=== PATIENT | female | born 1990 | race Caucasian/White ===

== ENCOUNTER 2016-05-19 01:17 | Emergency (ER) | payer OTHER ==
[~2016-05-19] VITALS: Ht 162.6 cm; Wt 93.5 kg
[~2016-05-19 01:17] MED LIST: NITR-58 PO; PHEN95TA29 PO; PREN1TAB79 PO
[2016-05-19 01:25] VITALS: Ht 162.6 cm; Wt 93.5 kg
--- NOTE | 2016-05-19 05:43 | ERD ---
ER Documentation Chief Complaint Date/Time DATE: 05/19/16 TIME: 05:43 Chief Complaint back pain, headache, fever HPI 25 year old female who presents with CC of fever and bilateral headache x 3 days. Associated symptoms include nasal congestion, ST, cough, and bodyaches/ back pain. She has been taking Tylenol and OTC cold medications which she states offers temporary relief. She denies AP, nausea, vomiting, neck stiffness , ear pain, urinary incontinence, loss of bowel control, and chills. She denies have a flu shot this year. She denies recent travel. ROS All systems reviewed and are negative except as per history of present illness. Medications Home Meds Active Scripts Ibuprofen* (Motrin*) 600 Mg Tab, 600 MG PO Q6, #30 TAB Prov:Mary Reyna PA-C 05/19/16 Sodium Chloride (Saline Nasal Mist) 126 Ml Mist, 1 SPRAY NASAL QID for 7 Days, # 1 BOTTLE Prov:Mary Reyna PA-C 05/19/16 Pseudoephedrine Hcl (Sudafe 12-Hour) 120 Mg Tablet.er, 120 MG PO BID Y for CONGESTION for 5 Days, #10 TAB.SA Prov:Mary Reyna PA-C 05/19/16 Phenazopyridine Hcl* (AZO*) 95 Mg Tablet, 95 MG PO TID, #20 TAB Prov:TIANNA SHAH PA-C 12/29/15 Nitrofurantoin Monohyd Macrocr* (Macrobid*) 100 Mg Capsr, 100 MG PO BID for 7 Days, CAP Prov:TIANNA SHAH PA-C 12/29/15 Reported Medications Vit W-Ca,Fe,FA(<1 mg) ( Vitamins) 1 Each Tablet, 1 EACH PO, TAB 10/15/15 Allergies Allergies: Coded Allergies: No Known Allergy (Verified , 11/20/15) PMhx/Soc History of Surgery: No Anesthesia Reaction: No Hx Neurological Disorder: No Hx Respiratory Disorders: No Hx Cardiac Disorders: No Hx Psychiatric Problems: No Hx Miscellaneous Medical Probl: No Hx Alcohol Use: No Hx Substance Use: No Hx Tobacco Use: No Smoking Status: Never smoker Physical Exam Vitals Physical Exam GENERAL: Non-toxic. No apparent signs of distress. Speaking in full sentences, coherent. HEENT: Atraumatic.Conjunctiva normal, no injection or discharge. Bilateral eyes are PERRL EOM intact. No eyelid or lower eyelid swelling noted. Ears: Right TM is erythematous and dull to light reflex. Left TM is normal, no erythema or bulging. No ear canal swelling. No ear discharge. No tenderness to palpation of tragus. Nose: no nasal discharge. Throat: Oropharynx normal. Tongue pink and moist. Bilateral tonsillar erythema. No tonsillar swelling or tonsillar exudates. No lymphadenopathy. LUNGS: Clear to auscultation. No accessory muscle use. No wheezing, no crackles. No signs or symptoms of respiratory distress. HEART: Regular rate and rhythm. No murmurs, clicks, rubs or gallops. BACK: No midline tenderness, no costovertebral tenderness. Negative straight leg raise. NEURO: The patient moves all 4 extremities with 5/5 strength. Cranial nerves are grossly intact. Normal mental status for age. Good muscle tone. SKIN: There is no apparent rash, petechiae, or erythema or swelling. Good skin turgor. Procedures/MDM Patients multiple complaints are likely to be due to viral etiology. On examination there was no tonsillar edema or exudate, TMs were pink/pearly and non-bulging, lungs were CTAB w/o rhonchi or rales, and patient has no meningismus. Appears to be in NAD, vitals are stable. Therefore, I do not believe that any imaging or blood work is warranted. I have explained to the patient that antibiotics are not effective against viral infections, and can further contribute to antibiotic resistance. Patient advised to practice good hand hygiene to prevent spread of viruses. Patient advised to stay hydrated and use the following medications for symptomatic relief: - Tylenol to relieve HOLLAND/fever/body aches. Patient advised to NOT exceed maximum daily dose of 3,000 mg. OR Motrin 600mg (do NOT exceed 3200 mg per day ) - Sudafed and Saline nasal mist for nasal congestion - Cepacol Lozenges for sore throat or warm salt water gargles I have a low suspicion for PE, pneumonia, TB, strep pharyngitis, peritonsillar abscess, epiglottitis, OM, meningitis, cauda equina syndrome, epidural abscess, cord compression, pyelonephritis, and sepsis. Patient is stable for discharge for and outpatient management at this time. Advised to follow-up with PCP within 1-2 days. Patient is afebrile at time of discharge. Departure Diagnosis: Primary Impression: Flu-like symptoms Condition: Mary Talavera PA-C May 19, 2016 05:43
[2016-05-19] MEDS ORDERED: IBUP-1542 PO (05:45)
[2016-05-19] MEDS ORDERED: PSEU120T11 PO (05:45)
[2016-05-19] MEDS ORDERED: SODI126M NASAL (05:45)
[2016-05-19 06:22] VITALS: BP 115/80; PULSE 80; RESP 18; TEMP 97.7
== END 2016-05-19 06:26 | disposition home or self-care (01) ==
LOC: FTE 01:17
DX: R50.9 Fever, unspecified (principal); M54.9 Dorsalgia, unspecified; R05 Cough; J02.9 Acute pharyngitis, unspecified; R09.81 Nasal congestion; M79.1 Myalgia; R51 Headache
CPT/HCPCS: 99283

== ENCOUNTER 2016-06-23 12:28 | Emergency (ER) | payer OTHER ==
[~2016-06-23] VITALS: Wt 93.5 kg
[~2016-06-23 12:28] MED LIST changes: +IBUP-1542 PO; +PSEU120T11 PO; +SODI126M NASAL
[2016-06-23] MEDS ORDERED: ONDANSETRON (ODT) 4 MG TAB ODT STA (13:10)
[2016-06-23] MEDS ORDERED: ACETAMINOPHEN 325 MG TAB PO ONE (13:30)
[2016-06-23 13:37] LABS: URINE BLOOD (Dip) POC Negative (NEGATIVE)
--- NOTE | 2016-06-23 14:14 | RADRPT ---
PROCEDURE: CT Brain without contrast. CLINICAL INDICATION: Headache and dizziness. TECHNIQUE: A CT of the brain without contrast was performed utilizing axial sections from the skul l base through the vertex. The patient was scanned without intravenous contrast enhancement. Sagitta l and coronal reformatted images were obtained using the data from the axial images. Total exam DLP is 720.23 mGy-cm. CTDIvol is 45.01 mGy. One or more of the following dose reduction techniques we re used: Automated exposure control, adjustment of the mA and/or kV according to patient size, use o f iterative reconstruction technique. COMPARISON: None available FINDINGS: There is normal medina-white matter differentiation. The ventricles and cisterns are normal. There is no intracranial hemorrhage or space-occupying lesion. There is no skull fracture or lytic lesion. IMPRESSION: 1. Normal noncontrast CT scan of the brain. RPTAT: QQ .Manuel Jurado MD, MD Date Time Electronically viewed and signed by .Manuel Jurado MD, on 06/23/2016 14:14 .R/
[2016-06-23] MEDS ORDERED: ONDA4TAB8 PO (14:20)
[2016-06-23] MEDS ORDERED: ACET325T33 PO (14:20)
--- NOTE | 2016-06-23 14:34 | ERD ---
ER Documentation Chief Complaint Date/Time DATE: 06/23/16 TIME: 14:23 Chief Complaint HEADACHE, N/V, DIZZINESS, ONSET THIS AM HPI Patient is a 25-year-old female complaining of headache, nausea, vomiting and dizziness this morning. Symptoms appeared when patient stood up from bed this am. She had one episode of vomiting and blurred vision that lasted for 30 minutes. Patient is still complaining of left sided frontal headache upon arrival. Patient states that she had similar episodes of headaches before but she considers this as the worst. Patient took Tylenol without any effect. Denies any fever, cough, shortness of breath, chest pain patient is currently taking control pills and last LMP was June 14. No medical or surgical history. No known drug allergies. ROS All systems reviewed and are negative except as per history of present illness. Medications Home Meds Active Scripts Acetaminophen* (Tylenol*) 325 Mg Tablet, 2 TAB PO Q6 Y for PAIN AND OR ELEVATED TEMP, #20 TAB Prov:VALERIE SCHNEIDER 06/23/16 Ondansetron Hcl* (Zofran*) 4 Mg Tablet, 4 MG PO Q6H for NAUSEA AND/OR VOMITING, #30 TAB Prov:VALERIE SCHNEIDER 06/23/16 Ibuprofen* (Motrin*) 600 Mg Tab, 600 MG PO Q6, #30 TAB Prov:Mary Reyna PA-C 05/19/16 Sodium Chloride (Saline Nasal Mist) 126 Ml Mist, 1 SPRAY NASAL QID for 7 Days, # 1 BOTTLE Prov:Mary Reyna PA-C 05/19/16 Pseudoephedrine Hcl (Sudafe 12-Hour) 120 Mg Tablet.er, 120 MG PO BID Y for CONGESTION for 5 Days, #10 TAB.SA Prov:Mary Reyna PA-C 05/19/16 Phenazopyridine Hcl* (AZO*) 95 Mg Tablet, 95 MG PO TID, #20 TAB Prov:TIANNA SHAH PA-C 12/29/15 Nitrofurantoin Monohyd Macrocr* (Macrobid*) 100 Mg Capsr, 100 MG PO BID for 7 Days, CAP Prov:TIANNA SHAH PA-C 12/29/15 Reported Medications Vit W-Ca,Fe,FA(<1 mg) ( Vitamins) 1 Each Tablet, 1 EACH PO, TAB 10/15/15 Allergies Allergies: Coded Allergies: No Known Allergy (Verified , 11/20/15) PMhx/Soc History of Surgery: No Anesthesia Reaction: No Hx Neurological Disorder: No Hx Respiratory Disorders: No Hx Cardiac Disorders: No Hx Psychiatric Problems: No Hx Miscellaneous Medical Probl: No Hx Alcohol Use: No Hx Substance Use: No Hx Tobacco Use: No Physical Exam Vitals Vital Signs Date Time Temp Pulse Resp B/P Pulse Ox O2 Delivery O2 Flow Rate FiO2 06/23/16 12:29 97.5 82 17 111/69 98 Physical Exam Physical Exam CONST: Well-developed, well-nourished, in no acute distress. Nontoxic in appearance. HEENT: Atraumatic. Normal Conjunctiva. EOM intact. TM intact. External ear is normal. Clear oropharnyx without erythema. No Uvular deviation. Moist mucous membranes. Supple neck. No meningismus. No submandibular induration. RESP: Clear to auscultation bilaterally. No wheezing. CARDIO: Regular rate and rhythm, no murmurs. ABD: Soft, non tender, non distended. Normal bowel sounds. No McBurney's point tenderness. No guarding or rigidity. No peritoneal signs. SKIN: No petechiae or rashes. BACK: No midline or flank tenderness. EXT: No cyanosis or edema. Distal pulses equal and bilateral. NEURO: Awake and alert, appropriate for age. Positive for Turner-Hallpike and Romberg test. Results 24 hrs Laboratory Tests Test 06/23/16 12:40 Bedside Urine Blood Negative Bedside Urine Glucose (UA) Negative Bedside Urine Ketones (LAB) Negative Bedside Urine Leukocyte Esterase (L Trace Bedside Urine Nitrite (LAB) Negative Bedside Urine Protein (LAB) Trace Bedside Urine pH (LAB) 5.5 Current Medications Medications (Trade) Dose Ordered Sig/Margarita Route PRN Reason Start Time Stop Time Status Last Admin Dose Admin Ondansetron HCl (Zofran Odt) 4 mg ONCE STAT ODT 06/23/16 13:10 06/23/16 13:13 DC 06/23/16 13:32 Acetaminophen (Tylenol Tab) 650 mg ONCE ONCE PO 06/23/16 13:30 06/23/16 13:31 DC 06/23/16 13:32 Patient: DIONICIO COWART : 1990 Age: 25 Sex: F [id number] DOS: 06/23/16 1310 Ordering MD: VALERIE SCHNEIDER NP Location: [facility] Room/Bed: PROCEDURE: CT Brain without contrast. CLINICAL INDICATION: Headache and dizziness. TECHNIQUE: A CT of the brain without contrast was performed utilizing axial sections from the skull base through the vertex. The patient was scanned without intravenous contrast enhancement. Sagittal and coronal reformatted images were obtained using the data from the axial images. Total exam DLP is 720.23 mGy-cm. CTDIvol is 45.01 mGy. One or more of the following dose reduction techniques were used: Automated exposure control, adjustment of the mA and/or kV according to patient size, use of iterative reconstruction technique. COMPARISON: None available FINDINGS: There is normal medina-white matter differentiation. The ventricles and cisterns are normal. There is no intracranial hemorrhage or space-occupying lesion. There is no skull fracture or lytic lesion. IMPRESSION: 1. Normal noncontrast CT scan of the brain. RPTAT: QQ .Manuel Jurado MD, MD Date Time Electronically viewed and signed by .Manuel Jurado MD, MD on 06/23/2016 14:14 Procedures/[facility] EMERGENCY DEPARTMENT COURSE/MEDICAL DECISION MAKING This is a 25-year-old female who comes to the emergency room complaining of dizziness, headache, vomiting, nausea and blurred vision that started this a.m. The patient was given Zofran and Tylenol. On re-evaluation, the patient's symptoms improved. test is negative and UA is normal. CT of the brain was done and was interpreted by a radiologist. Results shows normal. My primary diagnosis is headache. Secondary diagnosis is dizziness Differential diagnoses considered, included but not limited to vertigo, intracranial hemorrhage, MA, migraine. Pt is hemodynamically stable upon reassessment. The patient was discharged for outpatient management with a prescription for Tylenol and Zofran. The patient was advised to followup with their PMD in 1-2 days and to return to the Emergency Department if there are any new or worsening symptoms. The patient understood and agreed with the diagnosis, treatment and plan. Patient is stable for discharge at this time. Departure Diagnosis: Primary Impression: Headache Headache type: unspecified Headache chronicity pattern: acute headache Intractability: not intractable Qualified Code: R51 - Acute nonintractable headache, unspecified headache type Additional Impression: Dizziness Condition: Stable Patient Instructions: Understanding Headache Pain, Dizziness, Unk Cause Additional Instructions: Follow-up with your primary care physician in 1-2 days. Return to the emergency department immediately should you have any new or worsening symptoms, uncontrolled fevers, or other unexplained symptoms. Take all medications as directed. VALERIE SCHNEIDER Jun 23, 2016 14:33
== END 2016-06-23 14:30 | disposition home or self-care (01) ==
LOC: FTE 12:28
DX: R51 Headache (principal); R42 Dizziness and giddiness; R11.2 Nausea with vomiting, unspecified
CPT/HCPCS: 70450; 81003; Z7502; Z7610

== ENCOUNTER 2016-07-25 10:10 | Emergency (ER) | payer OTHER ==
[~2016-07-25] VITALS: Ht 165.1 cm; Wt 89.2 kg
[~2016-07-25 10:10] MED LIST changes: +ACET325T33 PO; +ONDA4TAB8 PO
[2016-07-25 10:12] VITALS: Ht 165.1 cm; Wt 89.2 kg
[2016-07-25] MEDS ORDERED: IBUP800T25 PO (11:20)
[2016-07-25] MEDS ORDERED: ONDA4TAB14 PO (11:20)
--- NOTE | 2016-07-25 11:34 | ERD ---
ER Documentation Chief Complaint Date/Time DATE: 07/25/16 TIME: 11:31 Chief Complaint flu like symptoms x 3 days,body aches , cough HPI 25-year-old female, no significant past medical history who presents the emergency room with flulike symptoms for approximately 48 hours. The patient describes several episodes of nonbloody nonbilious emesis. The patient also describes rhinorrhea, nasal congestion, dry nonproductive cough, myalgias and mild, gradual onset headache. Subjective fevers at home. She has not measured the temperature. Similar sick contact with with similar symptoms. The patient had flu vaccine this year. ROS All systems reviewed and are negative except as per history of present illness. Medications Home Meds Active Scripts Ondansetron (Ondansetron Odt) 4 Mg Tab.rapdis, 4 MG PO Q6H Y for NAUSEA AND/OR VOMITING, #10 TAB Prov:MEEK DUFFY MD 07/25/16 Ibuprofen* (Motrin*) 800 Mg Tab, 800 MG PO Q6H Y for PAIN AND OR ELEVATED TEMP, #30 TAB Prov:MEEK DUFFY MD 07/25/16 Acetaminophen* (Tylenol*) 325 Mg Tablet, 2 TAB PO Q6 Y for PAIN AND OR ELEVATED TEMP, #20 TAB Prov:VALERIE SCHNEIDER 06/23/16 Ondansetron Hcl* (Zofran*) 4 Mg Tablet, 4 MG PO Q6H for NAUSEA AND/OR VOMITING, #30 TAB Prov:VALERIE SCHNEIDER 06/23/16 Ibuprofen* (Motrin*) 600 Mg Tab, 600 MG PO Q6, #30 TAB Prov:Mary Reyna PA-C 05/19/16 Sodium Chloride (Saline Nasal Mist) 126 Ml Mist, 1 SPRAY NASAL QID for 7 Days, # 1 BOTTLE Prov:Mary Reyna PA-C 05/19/16 Pseudoephedrine Hcl (Sudafe 12-Hour) 120 Mg Tablet.er, 120 MG PO BID Y for CONGESTION for 5 Days, #10 TAB.SA Prov:Mary Reyna PA-C 05/19/16 Phenazopyridine Hcl* (AZO*) 95 Mg Tablet, 95 MG PO TID, #20 TAB Prov:TIANNA SHAH PA-C 12/29/15 Nitrofurantoin Monohyd Macrocr* (Macrobid*) 100 Mg Capsr, 100 MG PO BID for 7 Days, CAP Prov:TIANNA SHAH PA-C 12/29/15 Reported Medications Vit W-Ca,Fe,FA(<1 mg) ( Vitamins) 1 Each Tablet, 1 EACH PO, TAB 10/15/15 Allergies Allergies: Coded Allergies: No Known Allergy (Verified , 11/20/15) PMhx/Soc Medical and Surgical Hx: pt denies Medical Hx History of Surgery: No Anesthesia Reaction: No Hx Neurological Disorder: No Hx Respiratory Disorders: No Hx Cardiac Disorders: No Hx Psychiatric Problems: No Hx Miscellaneous Medical Probl: No Hx Alcohol Use: No Hx Substance Use: No Hx Tobacco Use: No Smoking Status: Never smoker FmHx Family History: No diabetes Physical Exam Vitals Vital Signs Date Time Temp Pulse Resp B/P Pulse Ox O2 Delivery O2 Flow Rate FiO2 07/25/16 10:12 98.1 118 24 113/67 99 Physical Exam General: Well developed, well nourished, no acute distress Head: Normocephalic, atraumatic. Eyes: Pupils equally reactive, EOM intact ENT: Moist mucous membranes, posterior pharynx without swelling or exudates, uvula midline, tympanic membranes are nonbulging bilaterally Neck: Supple, no lymphadenopathy Respiratory: Lungs clear bilaterally, no distress Cardiovascular: RRR, no murmurs, rubs, or gallops Abdominal: Soft, non-tender, non-distended, no peritoneal signs, no tenderness to McBurney's point : Deferred MSK: No edema, no unilateral swelling, 5/5 strength Neurologic: Alert and oriented, moving all extremities, normal speech, no focal weakness, no cerebellar signs Skin: No rash Psych: Normal mood Procedures/MDM The patient's clinical presentation is very consistent with an acute viral syndrome. Her abdominal exam is benign without signs or symptoms concerning for acute intra-abdominal process. She is otherwise well-appearing and well- hydrated. The patient does not exhibit any clinical signs or symptoms concerning for serious bacterial infection or systemic illness. Based on history and clinical exam findings the patient does not appear to have evidence of pneumonia, strep pharyngitis, urinary tract infection, bacteremia, sepsis, or meningitis. For these reasons I do not believe it is necessary to obtain laboratory testing or diagnostic imaging. I believe it would be appropriate for symptom control, and close outpatient primary care follow-up. We discussed follow up with the patient's primary care doctor within 24 to 48 hours as needed. We also discussed return to the emergency room for worsening symptoms or worsening condition. Discharge Medications: Zofran, Motrin Departure Diagnosis: Primary Impression: Influenza-like illness Condition: Stable Patient Instructions: Viral Syndrome (Adult) Referrals: [facility] YOU HAVE RECEIVED A MEDICAL SCREENING EXAM AND THE RESULTS INDICATE THAT YOU DO NOT HAVE A CONDITION THAT REQUIRES URGENT TREATMENT IN THE EMERGENCY DEPARTMENT. FURTHER EVALUATION AND TREATMENT OF YOUR CONDITION CAN WAIT UNTIL YOU ARE SEEN IN YOUR DOCTORS OFFICE WITHIN THE NEXT 1-2 DAYS. IT IS YOUR RESPONSIBILITY TO MAKE AN APPOINTMENT FOR FOLOW-UP CARE. IF YOU HAVE A PRIMARY DOCTOR --you should call your primary doctor and schedule an appointment IF YOU DO NOT HAVE A PRIMARY DOCTOR YOU CAN CALL OUR PHYSICIAN REFERRAL HOTLINE AT IF YOU CAN NOT AFFORD TO SEE A PHYSICIAN YOU CAN CHOSE FROM THE FOLLOWING [facility] [address] [facility]. [facility] [address] [facility]. [facility] [address] [facility] [facility] [address] [facility]. [facility] [address] [facility]. [facility] [address] [facility]. [facility] YOU HAVE RECEIVED A MEDICAL SCREENING EXAM AND THE RESULTS INDICATE THAT YOU DO NOT HAVE A CONDITION THAT REQUIRES URGENT TREATMENT IN THE EMERGENCY DEPARTMENT. FURTHER EVALUATION AND TREATMENT OF YOUR CONDITION CAN WAIT UNTIL YOU ARE SEEN IN YOUR DOCTORS OFFICE WITHIN THE NEXT 1-2 DAYS. IT IS YOUR RESPONSIBILITY TO MAKE AN APPOINTMENT FOR FOLOW-UP CARE. IF YOU HAVE A PRIMARY DOCTOR --you should call your primary doctor and schedule and appointment IF YOU DO NOT HAVE A PRIMARY DOCTOR YOU CAN CALL OUR PHYSICIAN REFERRAL HOTLINE AT . IF YOU CAN NOT AFFORD TO SEE A PHYSICIAN YOU CAN CHOSE FROM THE FOLLOWING [facility] INSTITUTIONS: [facility] [address] [place] [address] [facility] [address] [place] [address] [facility] + [facility] [address] [place] [address] Additional Instructions: Call your primary care doctor TOMORROW for an appointment during the next 1 WEEK.Tell the secretary receptionist that you were referred from this facility.See the doctor sooner or return here if your condition worsens before your appointment time. MEEK DUFFY MD Jul 25, 2016 11:34
== END 2016-07-25 11:41 | disposition home or self-care (01) ==
LOC: FTE 10:10
DX: J11.1 Influenza due to unidentified influenza virus with other respiratory manifestations (principal)
CPT/HCPCS: 99283